=== PATIENT | female | born 1940 | race Caucasian/White ===

== ENCOUNTER → 2016-10-21 | Day surgery (SDC) | payer MEDICARE ==
[~2016-10-21] MED LIST: BUPIVACAINE/EPINEPHRINE 0.25% 50 ML VIAL ONE; BUPIVACAINE/EPINEPHRINE 0.5% 50 ML VIAL ONE; ISOSULFAN BLUE 50 MG/5 ML VIAL SQ ONE; LACTATED RINGER'S 1000 ML INJ 1,000 ML ONE; MIDAZOLAM HCL 2 MG/2 ML VIAL ONE; NEOMYCIN/POLYMYXIN/BACITRACIN OINT 15 GM TUBE ONE; ONDANSETRON HCL 4 MG/2 ML VIAL IV PUSH ONE; PROPOFOL 200 MG/20 ML AMP IV ONE; ceFAZolin 2 GM PREMIX 50 ML ONE
--- NOTE | 2016-10-21 15:56 | TN ---
cc: BERNARDO COELHO M.D. DATE OF SURGERY 10/21/2016 PREOPERATIVE DIAGNOSIS Recurrent infiltrating lobular carcinoma of the left breast and skin nodule right hand. POSTOPERATIVE DIAGNOSIS Recurrent infiltrating lobular carcinoma of the left breast and skin nodule right hand. PROCEDURE Injection blue dye left breast, left total mastectomy with attempted left axillary sentinel lymph node biopsy converted to left axillary lymph node sampling and excision of skin lesion dorsum of right hand. SURGEON Dr. Bernardo Coelho. ASSEMBLER [employer] Edwards ANESTHESIA General. INDICATION This is a very pleasant 76-year-old woman who was found to have abnormality on screening mammogram, diagnostic mammogram and ultrasound. Ultrasound-guided core biopsy demonstrated infiltrating lobular carcinoma of the left breast adjacent to her lumpectomy cavity consistent with a local recurrence. Plans are made for appropriate surgical treatment. She was incidentally discovered to have a raised abnormal-appearing skin lesion of the right hand on the dorsal surface. She desired excision. INTRAOPERATIVE FINDINGS No evidence of increased uptake with navigator probe in the left axilla. Blue lymphatic to the left axilla but no blue axillary lymph node. Single palpable node surrounding fatty tissue removed for axillary sampling. Left breast sent with a short stitch superior anterior and a long stitch lateral posterior for permanent pathology. The lesion from dorsum of right hand excised and sent to pathology. ESTIMATED BLOOD LOSS Less than 25 ml. DRAIN 10 mm flat fluted drain. DESCRIPTION OF PROCEDURE IN DETAIL The patient was Agustina Sue taken to the operating room and placed in supine position. She had undergone lymphoscintigraphy which did not show any evidence of sentinel lymph node in the axilla or elsewhere. Sequential compression devices were placed on bilateral lower extremities. Following induction of adequate general anesthesia, a time out procedure was performed. Following completion of time-out procedure to everyone's satisfaction within the room, the left breast skin was prepped with alcohol swab and 5 mL of isosulfan blue dye was injected in to the peritumoral and subareolar position, massaged in place. The left breast axilla and right dorsum of the hand were was then prepped and draped in usual sterile fashion with Betadine. A proposed clamshell incision was made with a marking pen on the left breast including her previous lumpectomy scar. Incision was carried out with scalpel and hemostasis controlled with electrocautery. Superior inferior breast flaps were developed with electrocautery. The breast was removed from the underlying pectoralis muscle including the fascia with the specimen superior medial to the inferior lateral. The breast was from axillary daniela contents and two lymphovascular structures were divided between hemostats and ligated with 3-0 Vicryl ligature. The breast was marked as discussed above and sent to pathology for permanent section. Wound was irrigated copiously with saline and small bleeding points controlled with electrocautery. Through a separate stab incision inferomedially a 10 mm Sergey flat fluted drain was placed into the wound and held in place at the level of the skin with a 3-0 nylon drain stitch. The excess skin and subcutaneous tissue laterally were excised using a scalpel. Hemostasis controlled with electrocautery. The wound was closed in two layers with 3-0 Vicryl and 4-0 Monocryl. A Biopatch was placed around the drain exit site and a Stanislav dressing was placed over the mastectomy incision and then connected to suction without evidence of leak. Additional dressing was placed around the drain. Attention was then turned to the right hand. An elliptical incision was made around the lesion on the dorsum of the right hand after instillation of local anesthetic. The lesion was excised from surrounding tissues using a scalpel. Hemostasis was controlled with direct pressure and closure of the wound with a running 4-0 nylon simple suture. Dressings were applied with antibiotic ointment, 4x4 and Shantel. The patient tolerated the procedures without apparent complication. Sponge, needle and instrument counts were correct at the end of case. The surgical procedure was assisted by my nurse practitioner. My nurse practitioner's presence was necessary throughout the case for manipulation and exposure of the areas of concern. My KETTLE OPERATOR was assisting me throughout the duration of the procedure and her skill set was medically necessary to complete this procedure. During the surgical case surgical forceps fabricator was working the back table providing appropriate instrumentation and the nurse practitioner was directly assisting me. MD JACK Elizabeth/THONY /1:32 PM /3:34 PM
== END | disposition home or self-care (01) ==
LOC: ESDC 06:46
PROVIDERS: ATTEND Surgery Trauma Surgery
DX: C50.912 Malignant neoplasm of unspecified site of left female breast (principal); C44.622 Squamous cell carcinoma of skin of right upper limb, including shoulder
CPT/HCPCS: 00400; 01610; 11622; 19303; 38525; 38792; 88305; 88309; J0690; J2250; J2405; J3010; J7120; Q9968; 88307

== ENCOUNTER 2017-03-31 13:11 | Day surgery (SDC) | payer MEDICARE ==
[2017-03-31 13:48] VITALS: BP 187/84; PULSE 93; RESP 16; TEMP 98.2; O2SAT 92
[2017-03-31 14:17] VITALS: BP 170/77; PULSE 57; RESP 16; TEMP 98.2; O2SAT 96
[2017-03-31] MEDS ORDERED: LIDOCAINE HCL 1% PF 30 ML VIAL ONE (14:19)
--- NOTE | 2017-04-01 08:27 | RADRPT ---
EXAM DATE/TIME: 03/31/2017 13:23 [facility] COMPARISON: No previous studies available for comparison. INDICATIONS : Right thyroid nodule. MEDICAL HISTORY : Renal insufficiency, chronic. Right thyroid nodule. Breast cancer. Chemotherapy. Radiation. SURGICAL HISTORY : Total knee replacement, left. Mastectomy, left. Hysterectomy. Left lumpectomy. Appendectomy. ENCOUNTER: Initial ACUITY: 2 weeks PAIN SCORE: 0/10 LOCATION: Right neck ORGAN: Right thyroid lobe SPECIMENS: Four fine needle aspirate(s) submitted for pathologic evaluation. DEVICE: 22 gauge needle Post procedure scanning reveals no hematoma or other complication. The possibility does exist that the tissue obtained will be non-diagnostic. If the sample is non-tali gnostic a repeat biopsy or surgical biopsy may need to be performed. TECHNIQUE: 1. Ultrasound guidance for needle biopsy. 2. Needle biopsy. The risks, benefits, and alternatives to ultrasound guided needle biopsy were explained to the patien t in detail including the risk of bleeding and infection. Written and verbal informed consent was ob tained. With the patient on the ultrasound table, images were obtained. Overlying skin was prepped and drape d in the usual sterile fashion and Lidocaine was utilized as a local anesthetic. A needle was advanced into the identified target and the number of specimens as above obtained and modi bmitted for pathologic evaluation. The patient tolerated the procedure well and left the ultrasound suite in stable condition. CONCLUSION: Uncomplicated ultrasound guided needle biopsy. Larry Trejo MD on April 01, 2017 at 8:25 Board Certified Radiologist. This report was verified electronically.
== END 2017-03-31 15:53 | disposition home or self-care (01) ==
LOC: HRIP 13:11 → HRAD 13:11
PROVIDERS: ATTEND Internal Medicine Hematology & Oncology
DX: E04.1 Nontoxic single thyroid nodule (principal); Z85.3 Personal history of malignant neoplasm of breast; Z92.21 Personal history of antineoplastic chemotherapy; Z92.3 Personal history of irradiation
CPT/HCPCS: 10022; 76942; 88172; 88173

== ENCOUNTER → 2017-12-15 | Day surgery (SDC) | payer MEDICARE ==
[~2017-12-15] MED LIST changes: +ACETAMINOPHEN 1000 MG/100 ML 100 ML IV ONE; -BUPIVACAINE/EPINEPHRINE 0.25% 50 ML VIAL ONE; -BUPIVACAINE/EPINEPHRINE 0.5% 50 ML VIAL ONE; -ISOSULFAN BLUE 50 MG/5 ML VIAL SQ ONE; +LIDOCAINE 1%/EPINEPHrine 1:100,000 SOLN 30 ML VIAL ONE; -ONDANSETRON HCL 4 MG/2 ML VIAL IV PUSH ONE; -PROPOFOL 200 MG/20 ML AMP IV ONE; +PROPOFOL 500 MG/50 ML BTL IV ONE; -ceFAZolin 2 GM PREMIX 50 ML ONE; +ceFAZolin INJ 1,000 MG VIAL ONE
--- NOTE | 2017-12-24 12:55 | MP ---
cc: Tim Patterson MD DATE OF OPERATION: 12/15/2017 PREOPERATIVE DIAGNOSIS: Skin cancer, right leg, 4 cm diameter. POSTOPERATIVE DIAGNOSIS: Skin cancer, right leg, 4 cm diameter. PROCEDURE PERFORMED: Wide local excision, 4.5 x 9 cm excision with multilayer closure. SURGEON: Dr. Tim Patterson. ANESTHESIA: General with LMA. INDICATION FOR PROCEDURE: This is a pleasant 77-year-old woman who presented with a fast growing skin cancer on the right leg. Indications were for wide local excision. INTRAOPERATIVE FINDINGS: Successful removal of area of concern with clinical negative margin. Specimen sent to pathology. ESTIMATED BLOOD LOSS: Less than 20 mL. DESCRIPTION OF PROCEDURE IN DETAIL: The patient was identified as Agustina Sue, taken to the operating room and placed in supine position. General anesthesia was obtained. The right lower extremity was prepped and draped in the usual sterile fashion with Betadine. A timeout procedure was performed. Following completion of the time out procedure, everyone's satisfaction within the room, a proposed elliptical incision was made with a marking pen. Local anesthetic was infiltrated in and around the area of proposed incision. Incision was carried out with a scalpel. Hemostasis was controlled with electrocautery. The specimen was removed in its entirety using sharp dissection and electrocautery on bleeding points. The depth of the incision was down to the fascia of the leg. Specimen was marked with a short stitch at 12 o'clock, long stitch at 3 o'clock and passed off the field for pathologic evaluation. The wound was copiously irrigated with saline. Undermining circumferentially at the junction of the subcutaneous fatty tissue and the underlying fascia of the muscle of the leg was performed. This facilitated closure of the wound in layers using multiple interrupted 2-0 and 3-0 Vicryl sutures. Skin was approximated with running and interrupted 4-0 nylon vertical mattress sutures. Antibiotic ointment, 4 x 4's, Shantel and Coban were placed for the dressing. The patient tolerated the procedure without apparent complication. Sponge, needle and instrument counts were correct at the end of the case. MD JACK Elizabeth/YOSELIN , 12:22 PM , 12:54 PM
== END | disposition home or self-care (01) ==
LOC: ESDC 11:54
PROVIDERS: ATTEND Surgery Trauma Surgery
DX: C44.722 Squamous cell carcinoma of skin of right lower limb, including hip (principal)
CPT/HCPCS: 00400; 11606; 12034; 88305; J0131; J0690; J2250; J3010; J7120

== ENCOUNTER → 2018-01-26 | Day surgery (SDC) | payer MEDICARE ==
[~2018-01-26] MED LIST changes: -ACETAMINOPHEN 1000 MG/100 ML 100 ML IV ONE; -LIDOCAINE 1%/EPINEPHrine 1:100,000 SOLN 30 ML VIAL ONE; -MIDAZOLAM HCL 2 MG/2 ML VIAL ONE; +PROPOFOL 100 MG/10 ML INJ IV ONE; -PROPOFOL 500 MG/50 ML BTL IV ONE
--- NOTE | 2018-01-26 15:51 | PD.OP ---
cc: Tim Patterson MD Operative Report Date of Surgery: January 26, 2018 Preoperative Diagnosis: Squamous cell carcinoma right leg Postoperative Diagnosis: Same Procedure: Wide local excision squamous cell carcinoma right leg 1.5 x 5 cm with multilayer closure Anesthesia: Local with TI [facility] Surgeon: Tim Patterson Cotton Farmworker(s): Tracy Operation and Findings: Indications for procedure Pleasant 77-year-old woman well known to me who had a scoop biopsy of a skin lesion on the right leg laterally with squamous cell carcinoma. Indications were for wide local excision. Intraoperative findings successful removal 1.5 x 5 cm piece of skin including the scab from previous scoop biopsy. Clinical margins appeared negative. Specimen marked with short stitch at 12:00 long stitch at 3:00 and sent to pathology. Description of procedure in detail Patient was identified as Agustina Sue taken to the operating room and placed in a supine position. Sequential compression device was placed on left lower extremity. Following IV sedation by anesthesia the patient was placed in a lateral oblique position with all pressure points padded using pillows and the beanbag. Right lateral leg was exposed in the area of concern which had been marked under the patient's guidance in the holding area was prepped and draped in usual sterile fashion with Betadine. IV sedation by anesthesia was performed. A timeout procedure was performed. Following completion timeout procedure everyone's satisfaction within the room a ruler was used in a marking pen to make a proposed elliptical incision. The longitudinal portion of the incision was longer than normal due to the tightness of her skin. Local anesthetic was infiltrated generously around the area of proposed excision. The long elliptical incision was created with a scalpel and the specimen was removed in its entirety with a scalpel. It was marked with marking sutures as discussed above. Wound was irrigated with saline and small bleeding points were controlled electrocautery. The division between the subcutaneous fatty tissue in the muscular fascia tissue was circumferentially mobilized using electrocautery. It was then closed in 2 layers using 3-0 Vicryl and 4-0 nylon. Antibiotic ointment 4 x 4's and Shantel completed the dressing. The patient tolerated the procedure without apparent complication. Sponge needle and instrument counts were correct at the end of the case. Patient was transported to PACU in stable condition. Tim Patterson MD January 26, 2018 15:51
== END | disposition home or self-care (01) ==
LOC: ESDC 13:09
PROVIDERS: ATTEND Surgery Trauma Surgery
DX: C44.722 Squamous cell carcinoma of skin of right lower limb, including hip (principal)
CPT/HCPCS: 00400; 11606; 12032; 88305; J0690; J3010; J7120